=== PATIENT | male | born 1945 | race Caucasian/White ===

== ENCOUNTER → 2018-05-16 | Outpatient (CLI) | payer MEDICARE, OTHER ==
[~2018-05-16] MED LIST: TAMS.4ER PO; VALS80 PO
[2018-05-16 10:46] LABS: Alanine Aminotransfer (ALT/SGP 37 U/L (12-78); Albumin, Blood 3.6 g/dL (3.4-5.0); Albumin/Globulin Ratio 1.1 (0.8-1.8); Alk Phos 55 U/L (40-126); Anion Gap 6 mmol/L (6-16); Aspartate Aminotrans (AST/SGOT 18 U/L (12-37); Bilirubin, Total 0.2 mg/dL (0.1-1.0); Blood Urea Nitrogen 19 mg/dL (8-24); CO2, Blood 28 mmol/L (21-32); Chloride, Blood 106 mmol/L (98-108); Globulin, Blood 3.3 g/dL (2.2-4.0); Glomerular Filtration Rate >60 (60-); Glucose, Blood 86 mg/dL (70-99); Potassium, Blood 4.1 mmol/L (3.5-5.5); Sodium, Blood 140 mmol/L (136-145); Total Protein, Blood 6.9 g/dL (6.4-8.2)
== END ==
LOC: LAB SHORT 10:31 → LAB EV 10:31
PROVIDERS: Physician Assistant
DX: E86.0 Dehydration (principal)
CPT/HCPCS: 80053; 83735

== ENCOUNTER 2019-01-05 12:23 | Day surgery (SDC) | payer MEDICARE, BC ==
[~2019-01-05 12:23] MED LIST changes: +BLOOD PRESSURE MED; +METHOTREXATE; +METTREX2.5 PO; +OLME20 PO
--- NOTE | 2019-01-05 13:37 | NUR ---
01/05/19 2250 Tae Hassan UPDATED PT AND LETTING THEM KNOW THE PREVIOUS CASE IS RUNNING LONGER THAN EXPECTED. PT AND SPOUSE VERBALIZE AN UNDERSTANDING. PT RESTING COMFORTABLY IN PRE OP. VSS. AT BEDSIDE. CALL LIGHT WITHIN REACH. WILL CONTINUE TO MONITOR UNTIL REPORT OFF TO OR NURSE.
--- NOTE | 2019-01-05 16:34 | NUR ---
01/05/19 1634 Onofre Richmond PATIENT INTO SDU RECLINER RESTING, VSS, TOLERATING PO FLUIDS AND CRACKERS WELL. GAVE REPORT TO ORSC.NVP AND SHE TOOK OVER PATIENT CARE AT [id number]
== END 2019-01-05 17:00 | disposition home or self-care (01) ==
LOC: ORSCSDS 12:23
PROVIDERS: Podiatrist
PROC: 0QSN04Z Reposition Right Metatarsal with Internal Fixation Device, Open Approach (ICD-10-PCS; principal; 2019-01-05 13:30)
PROC: 0SNP0ZZ Release Right Toe Phalangeal Joint, Open Approach (ICD-10-PCS; principal; 2019-01-05 13:30)
DX: M20.41 Other hammer toe(s) (acquired), right foot (principal); M77.41 Metatarsalgia, right foot; I10 Essential (primary) hypertension; E78.00 Pure hypercholesterolemia, unspecified; F41.9 Anxiety disorder, unspecified; K21.9 Gastro-esophageal reflux disease without esophagitis; Z87.891 Personal history of nicotine dependence; Z79.899 Other long term (current) drug therapy
CPT/HCPCS: C1713; J0690; J2250; J3010; J7120

== ENCOUNTER → 2019-01-24 | Outpatient (CLI) | payer MEDICARE, BC | END | disposition home or self-care (01) | LOC: LAB EV 10:30 → LAB SHORT 10:30 | DX: T81.40XD Infection following a procedure, unspecified, subsequent encounter (principal) | CPT/HCPCS: 87070; 87205 ==

== ENCOUNTER → 2019-01-31 | Outpatient (CLI) | payer MEDICARE, BC | END | disposition home or self-care (01) | LOC: PLD 08:01 → LAB SHORT 08:01 | DX: L82.1 Other seborrheic keratosis (principal) | CPT/HCPCS: 88305 ==

== ENCOUNTER → 2019-05-17 | Outpatient (CLI) | payer MEDICARE, BC | END | disposition home or self-care (01) | LOC: LAB EV 15:06 → LAB SHORT 15:06 | DX: L08.9 Local infection of the skin and subcutaneous tissue, unspecified (principal) | CPT/HCPCS: 87070; 87075; 87077; 87147; 87186; 87205 ==

== ENCOUNTER → 2019-12-16 | Outpatient (CLI) | payer MEDICARE, BC ==
[2019-12-18 19:02] LABS: Adenovirus F 40/41 Not Detected (NOT DETECT); Astrovirus Not Detected (NOT DETECT); Campylobacter Sp Not Detected (NOT DETECT); Cryptosporidium Not Detected (NOT DETECT); Cyclospora Cayetanensis Not Detected (NOT DETECT); E. Coli O157 Not Detected (NOT DETECT); Entamoeba Histolytica Not Detected (NOT DETECT); Enteroaggregative E. coli-EAEC Not Detected (NOT DETECT); Enteropathogenic E. coli-EPEC Not Detected (NOT DETECT); Enterotoxigenic E. coli-ETEC Not Detected (NOT DETECT); Giardia Lamblia Not Detected (NOT DETECT); Norovirus GI/GII Not Detected (NOT DETECT); Plesiomonas Shigelloides Not Detected (NOT DETECT); Rotavirus A Not Detected (NOT DETECT); Salmonella Sp Not Detected (NOT DETECT); Sapovirus Not Detected (NOT DETECT); Shiga Toxin-prod E. coli-STEC Not Detected (NOT DETECT); Shigella/Enteroin E. coli-EIEC Not Detected (NOT DETECT); Vibrio Cholerae Not Detected (NOT DETECT); Vibrio Sp Not Detected (NOT DETECT); Yersinia Enterocolitica Not Detected (NOT DETECT)
== END | disposition home or self-care (01) ==
LOC: LAB EV 11:30
PROVIDERS: Family Medicine
DX: R19.7 Diarrhea, unspecified (principal)
CPT/HCPCS: 0097U; 87324

== ENCOUNTER 2020-02-05 13:02 | Day surgery (SDC) | payer MEDICARE, BC ==
[~2020-02-05] VITALS: Ht 172.7 cm; Wt 83.5 kg
[~2020-02-05 13:02] MED LIST changes: +FAMO20 PO; +Percocet 5-3251 EACH PO; +Pravachol40 MG PO; +TADA10TA PO
== END 2020-02-05 15:42 | disposition home or self-care (01) ==
LOC: ORSCSDS 13:02
PROVIDERS: Student in an Organized Health Care Education/Training Program
PROC: 0DB78ZX Excision of Stomach, Pylorus, Via Natural or Artificial Opening Endoscopic, Diagnostic (ICD-10-PCS; principal; 2020-02-05 14:15)
PROC: 0DB48ZX Excision of Esophagogastric Junction, Via Natural or Artificial Opening Endoscopic, Diagnostic (ICD-10-PCS; principal; 2020-02-05 14:15)
PROC: 0DB98ZX Excision of Duodenum, Via Natural or Artificial Opening Endoscopic, Diagnostic (ICD-10-PCS; principal; 2020-02-05 14:15)
DX: K21.0 Gastro-esophageal reflux disease with esophagitis (principal); K44.9 Diaphragmatic hernia without obstruction or gangrene; K22.2 Esophageal obstruction; R10.13 Epigastric pain; I10 Essential (primary) hypertension; Z87.891 Personal history of nicotine dependence; Z79.899 Other long term (current) drug therapy
CPT/HCPCS: 88305; 88312; 88342; J2704; J7120

== ENCOUNTER → 2022-04-03 | Outpatient (CLI) | payer MEDICARE, BC ==
[2022-04-05 12:51] LABS: Stool Occult Bld Immuno 1 Negative (NEGATIVE)
== END | disposition home or self-care (01) ==
LOC: LAB SHORT 15:27 → LAB 15:27 → LAB SHORT 04-04 15:27
PROVIDERS: Family Medicine
DX: R63.4 Abnormal weight loss (principal)
CPT/HCPCS: 82274

== ENCOUNTER 2025-02-06 09:03 | Day surgery (SDC) | payer MEDICARE, OTHER ==
[~2025-02-06] VITALS: Ht 170.2 cm; Wt 78.2 kg
[2025-02-06] VITALS (11 sets, daily range): BP systolic 115–154; BP diastolic 53–69
[~2025-02-06 09:03] MED LIST changes: +LOSA25 PO; +PANT20 PO; +Vitamin D1000 UNI1
[2025-02-06] MEDS ORDERED: Lactated Ringer's 1,000 ML IV SCH (09:10)
[2025-02-06] MEDS ORDERED: CeFAZolin Sodium 2,000 MG in NS 100 ML IV SCH (09:10)
[2025-02-06] MEDS ORDERED: Bupivacaine 0.5% HCl 5 MG/ML 30MLVIAL ONE (09:38)
[2025-02-06] MEDS ORDERED: Midazolam HCl 1MG / ML 2ML Vial ONE (09:48)
[2025-02-06] MEDS ORDERED: propofoL 20 ML IV ONE (09:49)
[2025-02-06] MEDS ORDERED: Ondansetron HCl 2 MG / ML 2ML Vial ONE (09:49)
[2025-02-06] MEDS ORDERED: Lidocaine HCl 2% 20 ML MDV ONE (09:49)
[2025-02-06] MEDS ORDERED: Dexamethasone Sod Phos 10 MG/ML 1ML VIAL ONE (09:49)
[2025-02-06] MEDS ORDERED: Rocuronium Bromide 10 MG/ML 5ML Injection IV ONE (09:49)
[2025-02-06] MEDS ORDERED: FentaNYL Citrate 50 MCG/ML 2 ML Injection ONE (09:49)
--- NOTE | 2025-02-06 10:00 | NUR ---
Ambulatory in Day Surgery. Patient confirms NPO status and agrees with scheduled surgery. Surgical site prepped with 2% Chlorhexidine cloth wipe. Patient reports completing Chlorhexadine shower X2 prior to admission to hospital. Patient States Post-Procedure ride home has been arranged.
[2025-02-06] MEDS ORDERED: ePHEDrine Sulfate 50 MG/ML 1ML Injection ONE (10:17)
[2025-02-06] MEDS ORDERED: HYDROmorphone HCl 0.5 MG/0.5 ML SYR ONE (10:27)
[2025-02-06] MEDS ORDERED: HYDROmorphone HCl/Pf 1MG SYR IV PRN (10:30)
[2025-02-06] MEDS ORDERED: Ondansetron HCl 2 MG / ML 2ML Vial IV PRN (10:30)
[2025-02-06] MEDS ORDERED: Prochlorperazine Edisylate 10 mg Vial IV PRN (10:30)
[2025-02-06] MEDS ORDERED: FentaNYL Citrate 50 MCG/ML 2 ML Injection IV PRN ×2 (10:30→10:35)
[2025-02-06] MEDS ORDERED: Albuterol 2.5 MG/3 ML VIAL INH PRN (10:35)
[2025-02-06] MEDS ORDERED: HYDROmorphone HCl 0.5 MG/0.5 ML SYR IV PRN ×2 (10:35→10:55)
[2025-02-06] MEDS ORDERED: ePHEDrine Sulfate 50 MG/ML 1ML Injection IV PRN (10:35)
[2025-02-06] MEDS ORDERED: OxyCODONE 5 mg/Acetamin 325 mg TABLET PO PRN (12:15)
--- NOTE | 2025-02-06 13:16 | NUR ---
D/C INSTRUCTIONS GIVEN TO PT & PT'S , UNDERSTANDING VERBALIZED. PT GIVEN DOSE OF PO PAIN PILL IN DISCHARGE ORDERED. PT TOLERATED WELL W/O COMPLAINT. PT ABLE TO EAT CRACKERS AND DRINK GLASS OF APPLE JUICE W/O COMPLAINT. PT STATES PAIN TOLERABLE, DENIES NAUSEA, VSS, ON RA. ALL BELONGINGS RETURNED TO PT. PT'S GIVEN HARD COPY OF PAIN RX. PT ALSO PROVIDED W/ ICE PACK. PT WHEELED TO MAIN ENTRANCE, STEADY GAIT NOTED UPON TRANSFER FROM TO VEHICLE. NO VISIBLE SIGNS OF DISTRESS NOTED.
== END 2025-02-06 23:09 | disposition home or self-care (01) ==
LOC: ORSCMMR 09:03 → ORD 10:00 → ORSCMMR 23:09
PROVIDERS: Surgery
PROC: 3E0T3BZ Introduction of Anesthetic Agent into Peripheral Nerves and Plexi, Percutaneous Approach (ICD-10-PCS; principal; 2025-02-06 10:00)
PROC: 8E0W4CZ Robotic Assisted Procedure of Trunk Region, Percutaneous Endoscopic Approach (ICD-10-PCS; principal; 2025-02-06 10:00)
PROC: 0YU54JZ Supplement Right Inguinal Region with Synthetic Substitute, Percutaneous Endoscopic Approach (ICD-10-PCS; principal; 2025-02-06 10:00)
PROC: 0WUF4JZ Supplement Abdominal Wall with Synthetic Substitute, Percutaneous Endoscopic Approach (ICD-10-PCS; principal; 2025-02-06 10:00)
DX: K40.30 Unilateral inguinal hernia, with obstruction, without gangrene, not specified as recurrent (principal); K45.0 Other specified abdominal hernia with obstruction, without gangrene; K66.0 Peritoneal adhesions (postprocedural) (postinfection); D17.6 Benign lipomatous neoplasm of spermatic cord; I10 Essential (primary) hypertension; E78.5 Hyperlipidemia, unspecified; K21.9 Gastro-esophageal reflux disease without esophagitis; N40.0 Benign prostatic hyperplasia without lower urinary tract symptoms; Z79.899 Other long term (current) drug therapy
CPT/HCPCS: 88304; A9270; C1781; J0690; J1100; J1171; J2250; J2405; J2704; J3010; J7120